=== PATIENT | female | born 1935 | race American Indian/Alaskan Native ===

== ENCOUNTER 2020-09-12 09:48 | Day surgery (SDC) | payer MEDICARE ==
[2020-09-12] MEDS ORDERED: SODIUM CHLORIDE 0.9% 1000 ML 1,000 ML IV SCH (10:00)
--- NOTE | 2020-09-12 10:23 | Anesthesia Consultation ---
Anesthesia Consult and Med Hx Date of service: 09/12/20 - Airway Anesthetic Teeth Evaluation: Partials ROM Head & Neck: Adequate Mental/Hyoid Distance: Inadequate Mallampati Class: Class III Intubation Access Assessment: Possibly Difficult - Pulmonary Exam CTA: Yes - Pre-Operative Health Status ASA Pre-Surgery Classification: ASA3 Proposed Anesthetic Plan: MAC - Pulmonary Hx Smoking: Yes (CIGARETTES 1 PPD X 30 YRS, QUIT IN 1989) Hx Asthma: No SOB: Yes (Stops to catch her breath after 3 steps of her staircase) Home Oxygen Therapy: No Hx Sleep Apnea: Yes (has CPAP) - Cardiovascular System Hx Hypertension: Yes (FOR 5 YRS) Hx Coronary Artery Disease: Yes (3 stents in 2014) Hx Heart Attack/AMI: Yes Hx Angina: Yes Hx Pacemaker: No Hx Internal Defibrillator: No - Central Nervous System Hx Neuromuscular Disorder: No Hx Seizures: No CVA: No Hx Psychiatric Problems: No - Gastrointestinal Hx Ulcer: Yes - Endocrine Hx Renal Disease: Yes (h/o ureteral repair due to stones) Hx End Stage Renal Disease: No Hx Liver Disease: No Hx Non-Insulin Dependent Diabetes: Yes Hx Thyroid Disease: Yes Hx Hypothyroidism: Yes - Hematic Hx Anemia: No Hx Sickle Cell Disease: No - Other Systems Hx Cancer: Yes (Colon x2, Breast) Hx Obesity: Yes (BMI-54.3kg) - Additional Comments Anesthesia Medical History Comments: Cardiac clerance obtained. Denies previous anesthesia complications.
--- NOTE | 2020-09-12 10:28 | Anesthesia Day of Surgery ---
Anesthesia Day of Surgery - Day of Surgery Patient Examined: Yes Patient H&P Reviewed: Yes Patient is NPO: Yes Beta Blockers: No Cardiac Clearance: Yes Pulmonary Clearance: No
[2020-09-12] MEDS ORDERED: LIDOCAINE 2% UROJECT 10 ML JELLY ONE (10:50)
[2020-09-12] MEDS ORDERED: WATER FOR IRRIG STERILE 250 ML BOTTLE IR ONE (10:50)
[2020-09-12] MEDS ORDERED: WATER FOR IRRIG STERILE 1,000 ML BOTTLE ONE (10:50)
[2020-09-12] MEDS ORDERED: LIDOCAINE MPF (2%) 20 MG/1 ML VIAL 5 ML ONE (11:00)
[2020-09-12] MEDS ORDERED: fentaNYL 100 MCG/2 ML INJ ONE (11:00)
[2020-09-12] MEDS ORDERED: propofoL 200 MG/20 ML VIAL IV ONE (11:00)
--- NOTE | 2020-09-12 11:06 | Short Stay Summary ---
Short Stay Documentation Date of service: 09/12/20 Narrative H&P: The patient presents for diagnostic colonoscopy for hematochezia, anemia and iron deficiency. - History Past Medical History: CAD, diabetes, hypothyroidism, other (obstructive sleep apnea, morbid obesity) Past Surgical History: cholecystectomy, Other (Myomectomy) Social history: no significant social history, lives with family - Allergies and Medications Current Medications: Allergies NSAIDS (Non-Steroidal Anti-Inflamma Allergy (Verified 05/02/15 11:12) STOMACH BLEEDS Home Medications Medication Instructions Recorded Confirmed Last Taken Type hydroCHLOROthiazide [HCTZ] 25 mg PO QDAY 05/02/15 05/03/15 05/03/15 History traMADoL [Ultram 50 MG tab] 50 mg PO Q6HR PRN 05/02/15 05/03/15 05/01/15 History Aspirin 09/12/20 Unknown History Metformin HCl 09/12/20 Unknown History Metoprolol 09/12/20 Unknown History Torsemide 09/12/20 Unknown History Active Medications Sodium Chloride (Nacl 0.9% 1000 Ml) 1,000 mls @ 50 mls/hr IV DIRECT BOGDAN - Physical exam General appearance: no acute distress, well-nourished, obese Integumentary: no rash, no growths, no abnormal pigmentation HEENT: Atraumatic, PERRLA, EOMI, Mucous membr. moist/pink Lungs: Clear to auscultation, Normal air movement Breasts: deferred Heart: Regular rate, Normal S1, Normal S2, No murmurs Gastrointestinal: normoactive bowel sounds, no tenderness, no distended, no masses, no guarding, no organomegaly, obese Female Genitourinary: deferred Rectal Exam: normal exam-external/orifice, normal rectal tone, tenderness, no mass Extremities: no ischemia, pulses intact, pulses symmetrical, No edema, normal temperature, normal color, Full ROM Neurological: Normal gait, Normal speech, Strength at 5/5 X4 ext, Normal tone, Sensation intact, Cranial nerves 3-12 NL - Brief post op/procedure progress note Date of procedure: 09/12/20 Findings: see dictation Estimated blood loss: none Pathology: none Condition: stable - Disposition Condition at discharge: Good Disposition: DC-01 TO HOME OR SELFCARE - Discharge Diagnoses (1) Hematochezia Status: Acute Short Stay Discharge Plan Activity: other (No driving for 24 hours) Weight Bearing Status: Weight Bear as Tolerated Diet: diabetic Follow up with: SHARITA LOPEZ [Other] - 7 Days
--- NOTE | 2020-09-12 11:09 | Operative Report ---
Operative Report Operative Report: Date of procedure: 09/12/2020 Preprocedure diagnosis: Hematochezia, history of iron deficiency anemia. Post procedure diagnosis: Internal hemorrhoids, moderate left colon diverticulosis. Procedure: Colonoscopy to the cecum with banding of internal hemorrhoids. Endoscopist: Dr. Truong Anesthesia: Monitored anesthesia care per anesthesia department Estimated blood loss: 0 Medications: Monitored anesthesia care. See separate report by anesthesia for details. After careful discussion of the nature and purpose of the procedure as well as details of the technique risks benefits and alternatives the patient gave consent. Please see recent history and physical from the office. The patient was placed in the left lateral decubitus position and medicated per anesthesia. A rectal exam was performed sphincter tone was normal there were no masses palpable. The Olympus pediatric colonoscope was passed transanally and advanced under continuous direct vision without difficulty to the cecum. The colon was well prepared. The cecum was normal. The ascending colon was normal and on forward and retroflexed views. The transverse colon was normal. There were scattered diverticula throughout the descending and sigmoid colon. 2+ internal hemorrhoids were seen on retroflexed view of the rectum which was otherwise normal. Hemorrhoid banding was performed in light of the patient's recurrence of hematochezia. The standard scope was removed followed by loading the banding device to the Olympus upper endoscopy scope. The scope was reintroduced into the rectum and retroflexed. 2 bands were placed around hemorrhoids in the distal rectum carefully avoiding the dentate line. The procedure was well- tolerated overall and the patient was observed in recovery. Conclusions: Internal hemorrhoids-status post banding. Moderate left colon diverticulosis. No evidence of neoplasia. Plan: Repeat colonoscopy as needed in light of her age and comorbid conditions. Signed electronically: Larry Truong M.D.
[2020-09-12] MEDS ORDERED: ACETAMINOPHEN W/CODEINE 300-30 MG TAB ONE (11:25)
[2020-09-12] MEDS ORDERED: ACETAMINOPHEN W/CODEINE 300-30 MG TAB PO ONE (11:39)
--- NOTE | 2020-09-12 12:58 | Post Anesthesia Evaluation ---
- Post Anesthesia Evaluation Patient Participated: Yes Airway Patent: Yes Stable Respiratory Function: Yes Nausea/Vomiting: No Temp > 96.8F: Yes Pain Manageable: Yes Adequeate Hydration: Yes Anesthesia Complications: No
[2020-09-12 20:00] VITALS: BP 130/59
== END 2020-09-12 09:49 | disposition home or self-care (01) ==
LOC: GIO 09:48
PROVIDERS: ATTEND Internal Medicine Gastroenterology
DX: K92.1 Melena (principal); D50.9 Iron deficiency anemia, unspecified; K57.30 Diverticulosis of large intestine without perforation or abscess without bleeding; K64.8 Other hemorrhoids; I25.118 Atherosclerotic heart disease of native coronary artery with other forms of angina pectoris; I10 Essential (primary) hypertension; E66.9 Obesity, unspecified; E11.9 Type 2 diabetes mellitus without complications; E03.9 Hypothyroidism, unspecified; G47.30 Sleep apnea, unspecified; Z79.82 Long term (current) use of aspirin; Z79.84 Long term (current) use of oral hypoglycemic drugs; Z88.6 Allergy status to analgesic agent; Z85.038 Personal history of other malignant neoplasm of large intestine; Z98.51 Tubal ligation status; Z90.710 Acquired absence of both cervix and uterus; Z90.721 Acquired absence of ovaries, unilateral; Z90.12 Acquired absence of left breast and nipple; Z87.442 Personal history of urinary calculi; Z98.890 Other specified postprocedural states; Z85.3 Personal history of malignant neoplasm of breast
CPT/HCPCS: 45398; 82962; J2704; J3010; J7030